=== PATIENT | female | born 1975 | race Caucasian/White ===

== ENCOUNTER 2025-07-24 17:13 | Emergency (ER) | payer MEDICAID ==
[~2025-07-24] VITALS: Ht 167.6 cm; Wt 81.0 kg
[2025-07-24 17:25] VITALS: O2SAT 98
[2025-07-24] MEDS ORDERED: ACETAMINOPHEN 500MG TABLET PO ONE (18:00)
[2025-07-24 18:17] LABS: BASOPHILS % 0.6 % (0.0-2.0); EOSINOPHILS % 3.1 % (0.0-5.0); HEMATOCRIT. 37.3 % (36.0-48.0); HEMOGLOBIN. 11.9 g/dL (12.0-16.0); LYMPHOCYTES % 27.2 % (20.0-50.0); MEAN PLATELET VOLUME 7.5 fl (7.4-10.4); MONOCYTES % 5.5 % (2.0-8.0); NEUTROPHILS % 63.6 % (40.0-76.0); PLATELET 449 x1000/uL (130-400); RED BLOOD CELL COUNT 4.74 mill/uL (4.2-5.4); RED CELL DISTRIBUTION WIDTH 20.6 % (11.6-14.6)
[2025-07-24 18:34] LABS: CREATININE 0.7 mg/dL (0.6-1.0); PROTEIN TOTAL 8.1 g/dL (6.0-8.3); UREA NITROGEN BLOOD 8 mg/dL (9-23)
[2025-07-24 18:35] LABS: TROPONIN I HIGH SENSITIVITY < 4 ng/L (3.0-34)
[2025-07-24 18:36] LABS: ASPARTATE AMINOTRANSFERASE 22 IU/L (<34); BILIRUBIN DIRECT < 0.1 mg/dL (<=3.0); BILIRUBIN TOTAL 0.4 mg/dL (0.1-1.0)
[2025-07-24] MEDS: ONDANSETRON 4MG ODT PO ONE (18:54)
[2025-07-24] MEDS: MAGNESIUM/ALUMINUM HYDROXIDE/SIMETHICONE 30ML UDC PO ONE (18:54)
[2025-07-24] MEDS: FAMOTIDINE 20MG TABLET PO ONE (18:55)
[2025-07-24] MEDS: MECLIZINE 25MG TABLET PO NR (20:15)
[2025-07-24 20:18] LABS: CLARITY URINE CLEAR (CLEAR); GLUCOSE URINE NEGATIVE (NEGATIVE); KETONES URINE NEGATIVE (NEGATIVE); LEUKOCYTE ESTERASE URINE TRACE (NEGATIVE); NITRITE URINE NEGATIVE (NEGATIVE); OCCULT BLOOD URINE NEGATIVE (NEGATIVE); PH URINE 8.0 (4.5-8.0); PROTEIN URINE NEGATIVE (NEGATIVE); SPECIFIC GRAVITY URINE 1.017 (1.005-1.030); UROBILINOGEN URINE 0.2 E.U./dL (0.2-1.0)
[2025-07-24 20:25] LABS: HCG SCREEN NEGATIVE
[2025-07-24] MEDS ORDERED: MECL-299 MT (20:29)
[2025-07-24 21:04] VITALS: BP 116/71; PULSE 60; RESP 16; TEMP 36.6; O2SAT 100
[2025-07-24] MEDS: ACETAMINOPHEN 500MG TABLET PO NR (21:04)
[2025-07-24 21:33] LABS: COLOR URINE STRAW (YELLOW)
[2025-07-24 21:35] LABS: RBC URINE NONE SEEN /hpf (0-2)
[2025-07-24 21:38] LABS: BACTERIA URINE TRACE; RENAL EPITHELIAL CELLS URINE Rare /lpf; SQUAMOUS EPITHELIAL CELL URINE FEW /lpf (RARE/1+)
== END 2025-07-24 21:07 | disposition home or self-care (01) ==
LOC: ER 17:13
DX: R42 Dizziness and giddiness (principal); F19.90 Other psychoactive substance use, unspecified, uncomplicated
CPT/HCPCS: 99284; 70450; 80076; 80048; 81003; 84703; 83690; 85025; 84484; 36415; 93005; J8597; Q0162